=== PATIENT | male | born 1955 | race Caucasian/White ===

== ENCOUNTER 2021-11-01 15:37 | Inpatient (IN) | payer MEDICARE, OTHER ==
[~2021-11-01] VITALS: Ht 188 cm; Wt 90.7 kg
[2021-11-01] VITALS (12 sets, daily range): BP systolic 58–150; BP diastolic 22–117
[2021-11-01] MEDS ORDERED: IV NORMAL SALINE 1000 ML BAG IV ONE (16:30)
[2021-11-01 16:39] LABS: HEMATOCRIT 33.2 % (36.7-47.1); MEAN CORPUSCULAR VOLUME 84.8 fL (73.0-96.2); PLATELET COUNT (AUTO) 86 K/uL (152-348)
[2021-11-01 16:52] LABS: ALANINE AMINOTRANSFERASE 37 U/L (16-63); ALKALINE PHOSPHATASE 228 U/L (50-136); ASPARTATE AMINOTRANSFERASE 30 U/L (15-37); BILIRUBIN,TOTAL 0.8 mg/dL (0.2-1.0); CARBON DIOXIDE 20 mmol/L (21-32); CHLORIDE 86 mmol/L (98-107); CREATININE 1.3 mg/dL (0.6-1.3); GLUCOSE 237 mg/dL (74-106); LACTATE DEHYDROGENASE 220 U/L (85-227); POTASSIUM 5.3 mmol/L (3.5-5.1); TOTAL PROTEIN, SERUM 4.8 g/dL (6.4-8.2); UREA NITROGEN, BLOOD 52 mg/dL (7-18)
[2021-11-01 17:13] LABS: CREATINE KINASE, TOTAL 38 U/L (39-308)
[2021-11-01] MEDS ORDERED: IV NS 1000 ML 1,000 ML IV ONE (17:15)
[2021-11-01] MEDS ORDERED: DILTIAZEM HCL 25 MG IV IV ONE (17:30)
[2021-11-01] MEDS: NOREPINEPHRINE BITARTRATE 8 MG in IV NORMAL SALINE 242 ML IV PRN ×3 (17:30→22:56)
[2021-11-01] MEDS ORDERED: DILTIAZEM HCL 25 MG IV ONE (17:44)
[2021-11-01] MEDS ORDERED: MEROPENEM 1,000 MG in IV NORMAL SALINE 100 ML IV ONE (17:45)
[2021-11-01] MEDS ORDERED: levoFLOXacin 750 MG/D5W 150 ML PIGGYBACK IV ONE (17:45)
[2021-11-01 18:12] LABS: LYMPHOCYTES % (MANUAL) 89 % (20-40); MONOCYTES % (MANUAL) 3 % (2-10); NEUTROPHILS % (MANUAL) 8 % (42-75)
[2021-11-01] MEDS ORDERED: ALLO300T2 PO (19:13)
[2021-11-01] MEDS ORDERED: LEVO500T90 PO (19:13)
[2021-11-01] MEDS ORDERED: MIRT-93 PO (19:13)
[2021-11-01] MEDS ORDERED: METO5SOL19 PO (19:13)
[2021-11-01] MEDS ORDERED: ZOLP5TAB8 PO (19:13)
[2021-11-01] MEDS ORDERED: APIX5TAB4 PO (19:13)
[2021-11-01] MEDS ORDERED: OMEP20TA5 PO (19:13)
[2021-11-01] MEDS ORDERED: MEROPENEM 1 G VIAL IV ONE (21:04)
[2021-11-01] MEDS ORDERED: PHENYLEPHRINE IV 50 MG in IV NORMAL SALINE 245 ML IV PRN (21:45)
[2021-11-01] MEDS ORDERED: ACETAMINOPHEN 650 MG SUPP.RECT RC PRN (21:45)
[2021-11-01] MEDS ORDERED: ONDANSETRON 4 MG/2 ML VIAL IV PRN (21:45)
[2021-11-01] MEDS ORDERED: IV D5/ 0.9% NACL 1,000 ML IV PRN (21:45)
[2021-11-01] MEDS ORDERED: MORPHINE SULFATE 2 MG/1 ML DISP.SYRIN IV PRN (21:45)
[2021-11-01] MEDS ORDERED: AMIODARONE HCL IV 150 MG in IV DEXTROSE 5% 100 ML IV ONE (22:00)
[2021-11-01] MEDS ORDERED: ENOXAPARIN SODIUM 100 MG/ML DISP.SYRIN SQ ONE (22:00)
[2021-11-01] MEDS ORDERED: AMIODARONE HCL IV 450 MG in IV DEXTROSE 5% 250 ML IV PRN (22:00)
[2021-11-01] MEDS ORDERED: MEROPENEM 1 G in IV NORMAL SALINE 100 ML IV SCH (22:00)
[2021-11-01] MEDS ORDERED: PROPOFOL 100 ML IV PRN (22:00)
[2021-11-01] MEDS ORDERED: PHENYLEPHRINE IV 100 MG in IV NORMAL SALINE 240 ML IV PRN (22:15)
[2021-11-01] MEDS ORDERED: ETOMIDATE 20 MG/10 ML VIAL IV ONE (22:30)
[2021-11-01] MEDS ORDERED: SUCCINYLCHOLINE CHLORIDE 200 MG/10 ML VIAL IV ONE (22:30)
[2021-11-01] MEDS ORDERED: VANCOMYCIN IV 1,500 MG in IV DEXTROSE 5% 500 ML IV ONE (23:00)
[2021-11-02] VITALS: BP 121/48
[2021-11-02 00:15] VITALS: BP 0/0
[2021-11-02 00:30] VITALS: BP 0/0
[2021-11-02] MEDS ORDERED: EPINEPHRINE 1:10,000 1 MG/10 ML DISP.SYRIN IV ONE (00:38)
[2021-11-02] MEDS ORDERED: ETOMIDATE 20 MG/10 ML VIAL IV ONE (00:38)
[2021-11-02] MEDS ORDERED: MEROPENEM 1,000 MG in IV NORMAL SALINE 50 ML IV SCH ×2 (06:00→18:00)
[2021-11-02] MEDS ORDERED: ENOXAPARIN SODIUM 100 MG/ML DISP.SYRIN SQ SCH ×2 (09:00)
[2021-11-02] MEDS ORDERED: PANTOPRAZOLE SODIUM 40 MG VIAL IV SCH (09:00)
== END 2021-11-02 00:39 | DRG 871 ==
LOC: ER 15:37 → CCU 19:53
PROVIDERS: ADMIT Internal Medicine; ATTEND Internal Medicine
PROC: 0BH17EZ Insertion of Endotracheal Airway into Trachea, Via Natural or Artificial Opening (ICD-10-PCS; 2021-11-01)
PROC: 5A1935Z Respiratory Ventilation, Less than 24 Consecutive Hours (ICD-10-PCS; 2021-11-01)
PROC: 02HV33Z Insertion of Infusion Device into Superior Vena Cava, Percutaneous Approach (ICD-10-PCS; principal; 2021-11-02)
PROC: B548ZZA Ultrasonography of Superior Vena Cava, Guidance (ICD-10-PCS; 2021-11-02)
DX: A41.9 Sepsis, unspecified organism (principal); R65.21 Severe sepsis with septic shock; J69.0 Pneumonitis due to inhalation of food and vomit; E43 Unspecified severe protein-calorie malnutrition; J96.01 Acute respiratory failure with hypoxia; N17.0 Acute kidney failure with tubular necrosis; E22.2 Syndrome of inappropriate secretion of antidiuretic hormone; J90 Pleural effusion, not elsewhere classified; D68.9 Coagulation defect, unspecified; L03.114 Cellulitis of left upper limb; I48.91 Unspecified atrial fibrillation; C14.0 Malignant neoplasm of pharynx, unspecified; R13.10 Dysphagia, unspecified; R73.9 Hyperglycemia, unspecified; E87.5 Hyperkalemia; I46.9 Cardiac arrest, cause unspecified; I49.01 Ventricular fibrillation; D69.6 Thrombocytopenia, unspecified; Z85.828 Personal history of other malignant neoplasm of skin; Z20.822 Contact with and (suspected) exposure to COVID-19
CPT/HCPCS: 36415; 51702; 70030-TC; 71045; 83605; 83615; 84443; 85025; 85730; 86140; 87040; 87077; 93005; 94002; 94660; A4217; A4663; A6209; G0378; J0171; J0282; J0330; J1650; J2185; J2370; J3370; J3490; J7030; J7050; J7060